=== PATIENT | female | born 1990 | race Caucasian/White ===

== ENCOUNTER 2017-01-17 03:33 | Inpatient (IN) | payer OTHER ==
[2017-01-17] VITALS (11 sets, daily range): BP systolic 100–154; BP diastolic 42–77
[~2017-01-17] VITALS: Ht 167.6 cm; Wt 133.4 kg
--- NOTE | ~2017-01-17 | CON ---
[place], [place] REPORT OF CONSULTATION NAME: LANIE GARNER UNIT #: [id number] ROOM: 518 DOCTOR: VANESSA ANN MD BIRTHDATE: [birth year] DOS: 01/18/2017 HISTORY OF PRESENT ILLNESS: A 26-year-old who has presented with multiple medical issues among which was leukocytosis of 24 and H and H of 8 and 29 with microcytic indices all along with lactic acid of 3.8 and comprehensive metabolic panel of electrolytes balanced. Liver function tests balanced. Urinalysis was 2+ bacteria. KUB of the abdomen, no acute intra-abdominal pathology was found. Lactic acid followed the drop was noticed. CT scan of the abdomen and pelvis was done. Focal inflammatory change identified involving the loops of small bowel in tests and findings favor small internal hernia. PAST MEDICAL HISTORY: Obesity and ovarian cyst. PAST SURGICAL HISTORY: Teeth extraction and cholecystectomy. SOCIAL HISTORY: Nonsmoker, nonalcohol consumer. FAMILY HISTORY: Noncontributory. ALLERGIES: LEVAQUIN. MEDICATION AT HOME: Sprintec 35 mcg daily. REVIEW OF SYSTEMS: HEENT: Denies double vision, blurred vision. RESPIRATORY: Denies shortness of breath. CARDIOVASCULAR: Denies acute chest pain. DIGESTIVE SYSTEM: No hematemesis, no hematochezia. However, abdominal pain, abnormal CT scan of the abdomen. PHYSICAL EXAMINATION: VITAL SIGNS: Obese patient. HEENT: Head is normocephalic, nontraumatic. Mouth and buccal mucosa benign. NECK: Supple, no thyromegaly. CHEST: Symmetric anatomy, equal expansion. No wheeze, no rhonchi. HEART: Normal sinus rhythm, no gallop, no murmur. ABDOMEN: Obese, soft. No hepato-organomegaly. Abdominal pain. Bowel sounds within normal limit. EXTREMITIES: No cyanosis, no pedal edema. NEUROLOGIC: Alert, oriented to time, place, person. IMPRESSION: Anemia, sepsis, antritis, obesity. LABORATORY DATA: Reviewed. Records reviewed. Her hCG is negative. Troponins are negative. Urine culture, no growth. Basic metabolic panel has been stable. CBC differential, H and H dropped to 5 and 21, which was a concern. Transfusion has been undertaken. PLAN AND DISCUSSION: Due to drop in H and H to this extreme degree of hemoglobin of 5 and abdominal pain, we are going to proceed with endoscopic [place], [place] REPORT OF CONSULTATION NAME: LANIE GARNER UNIT #: [id number] ROOM: 518 DOCTOR: SETH REEVES,VANESSA BIRTHDATE: [birth year] assessment to see what the pathology could be. I thank you very much indeed for your kind referral. VANESSA ANN MD CM:CONSTR:REPORT OF CONSULTATION 1056 01/18/17 2223 interface
--- NOTE | ~2017-01-17 | CON ---
[place], [place] REPORT OF CONSULTATION NAME: LANIE GARNER UNIT #: [id number] ROOM: 518 DOCTOR: SETH REEVES,VANESSA BIRTHDATE: [birth year] DOS: 01/18/2017 ADDENDUM: Case was discussed with Dr. Reagan of residency program, and differential has been reviewed with her; enteritis and metromenorrhagia and chronic bleeding issues have been addressed. However, due to the fact that CT scan had shown some antritis, we are going to do a stool for ova and parasite and cultures study and if we have still trouble with H and H, a CT scan of the abdomen with IV contrast is going to be organized in a next day or so. Her H and H is going to be followed up tomorrow after transfusions and workup in progress. VANESSA ANN MD CM:CONSTR:REPORT OF CONSULTATION 1115 01/19/17 1227 interface
--- NOTE | ~2017-01-17 | O ---
[place], [place] OPERATIVE NOTE NAME: [facility]IE [facility]ARNER [facility] [id number] UNIT #: [id number] ROOM: 518 DOCTOR: SETH REEVES,VANESSA BIRTHDATE: [birth year] DOS: GASTROENDOSCOPIC REPORT INDICATIONS: A 26-year-old patient who has presented with chief complaint of abdominal pain, severe drop in H and H to hemoglobin of 5 and to hematocrit of ____ with microcytic indices. The patient with menorrhagia history as well. PROCEDURE: Today's procedure part of investigation is panendoscopy plus biopsy. PREMEDICATION: Versed and Diprivan. SCOPE: Olympus forward-viewing gastroscope Q10 video. REPORT: After putting the patient in the left lateral position and after application of lubricant to the scope, the scope was introduced. Thereafter, under direct visualization, I advanced through the length of the esophagus without difficulty. Gastric pouch was entered. Evidence of gastritis was seen. Small hiatal hernia noticed. Duodenal bulb, second and third part within normal limits. The patient extubated, tolerated procedure well. IMPRESSION: Gastritis, small hiatal hernia. PLAN AND DISCUSSION: The patient is going to get 2 units of packed cells for hemoglobin of 5 and hematocrit of ____. The patient is going to have followup with Dr. Petey Valentine. The patient is going to get regular diet and H and H followup and clinical reassessment. Workup in progress. Thank you very much indeed for your kind referral. Sincerely, VANESSA ANN MD CM:OPRECORD:OPERATIVE NOTE 1059 [id number] VANESSA ANN MD 01/19/17 0338 interface
[~2017-01-17 03:33] MED LIST: IBU-8800 MG PO
[2017-01-17] MEDS ORDERED: SPRINTEC 35 MCG1 TA1 PO (03:41)
[2017-01-17 03:52] LABS: BASO % 0.1 % (0.0-1.0); EOS # 0.1 10*3/uL (0.0-0.4); EOS % 0.5 % (1.0-4.0); HEMATOCRIT 29.3 % (37.0-47.0); HEMOGLOBIN 8.2 g/dl (12.0-16.0); IG # 0.2 10*3/uL (0.0-0.1); LYMPH # 4.3 10*3/uL (1.3-4.4); LYMPH % 17.5 % (27.0-41.0); MEAN CELL VOLUME 65.1 fl (81.0-99.0); MEAN CORPUSCULAR HGB 18.2 pg (27.0-31.0); MEAN PLATELET VOLUME 9.5 fl (9.6-12.3); MONO % 3.9 % (3.0-9.0); NEUT # 18.9 10*3/uL (2.3-7.9); NEUT % 77.1 % (47.0-73.0); NUCLEATED RED BLOOD CELL 0.1 % (0.0-0.0); PLATELET COUNT AUTOMATED 661 10*3/uL (130-400); RED CELL DISTRI WIDTH 17.2 % (0-14.5); WHITE BLOOD COUNT 24.5 10*3/uL (4.8-10.8)
[2017-01-17 04:15] LABS: ALBUMIN 2.9 gm/dl (3.1-4.5); ALKALINE PHOSPHATASE 77 U/L (45-117); BILIRUBIN, TOTAL 0.4 mg/dl (0.2-1.0); BUN 11 mg/dl (7-24); CARBON DIOXIDE 19 mmol/L (21-32); CHLORIDE 106 mmol/L (98-107); EST GLOM FILT AFRICAN AMERICAN > 60 ml/min; GLUCOSE 273 mg/dL (65-99); POTASSIUM 4.5 mmol/L (3.5-5.1); SGOT/AST 20 IU/L (3-35); SGPT/ALT 15 U/L (12-78); SODIUM 140 mmol/L (136-145); TOTAL PROTEIN 7.3 gm/dL (6.4-8.2)
[2017-01-17 04:18] LABS: BILIRUBIN 1+ (NEGATIVE); BLOOD TRACE-LYSED (NEGATIVE); CLARITY CLOUDY (CLEAR); COLOR YELLOW (YELLOW); GLUCOSE NEGATIVE (NEGATIVE); KETONE TRACE (NEGATIVE); LEUKO ESTERASE NEGATIVE (NEGATIVE); NITRITE POSITIVE (NEGATIVE); PROTEIN 2+ (NEGATIVE); SPECIFIC GRAVITY >= 1.030 (1.005-1.030)
[2017-01-17 04:28] LABS: BACTERIA 2+
[2017-01-17 04:29] LABS: URINE REFLEX COMMENT YES (NO)
[2017-01-17 05:50] LABS: LA>2 REFLEX 2 HR DRAW NOW
[2017-01-17 06:05] LABS: LA>2 RFLX FOLLOW UP AT 2 HRS 2.8 mmol/L (0.4-2.0)
[2017-01-17] MEDS ORDERED: Zofran4 MG PO (06:34)
[2017-01-17] MEDS ORDERED: TRAMADOL HCL50 MG PO (06:34)
[2017-01-17 07:59] LABS: LA>2 REFLEX 4 HR DRAW NOW
[2017-01-18] VITALS (15 sets, daily range): BP systolic 103–168; BP diastolic 44–88
[2017-01-18 06:48] LABS: MEAN CELL VOLUME 66.6 fl (81.0-99.0); MEAN PLATELET VOLUME 9.5 fl (9.6-12.3); RED BLOOD COUNT 3.17 10*6/uL (4.10-5.10); RED CELL DISTRI WIDTH 17.1 % (0-14.5); WHITE BLOOD COUNT 9.2 10*3/uL (4.8-10.8)
[2017-01-18 06:54] LABS: HEMATOCRIT 21.1 % (37.0-47.0); PLATELET COUNT AUTOMATED 326 10*3/uL (130-400)
[2017-01-18 07:05] LABS: BUN 6 mg/dl (7-24); CARBON DIOXIDE 23 mmol/L (21-32); CHLORIDE 109 mmol/L (98-107); CHOLESTEROL 94 mg/dL (<200); EST GLOM FILT AFRICAN AMERICAN > 60 ml/min; FREE T4 1.21 ng/dl (0.76-1.46); GLUCOSE 161 mg/dL (65-99); HDL CHOLESTEROL 27 mg/dl (40-60); LDL CHOLESTEROL 24 mg/dL (9-159); POTASSIUM 3.8 mmol/L (3.5-5.1); SODIUM 140 mmol/L (136-145); TRIGLYCERIDES 213 mg/dl (<150); VLDL CHOLESTEROL 43 mg/dL (6-40)
[2017-01-18 07:07] LABS: EOSINOPHIL # 0.3 10*3/uL (0-0.4); EOSINOPHILS 3 % (1-4); LYMPHOCYTE # 1.9 10*3/uL (1.3-4.4); MONOCYTE # 0.3 10*3/uL (0.1-1.0); NEUTROPHIL # 6.7 10*3/uL (2.3-7.9); NEUTROPHILS 73 % (47-73); TOTAL CELLS COUNTED 100 #CELLS
[2017-01-18 07:08] LABS: HYPOCHROMIA MODERATE; MICROCYTOSIS MODERATE; PLATELET SUFFICIENCY NORMAL (NORMAL)
[2017-01-18 07:09] LABS: POLYCHROMASIA SLIGHT
[2017-01-18 07:12] LABS: HEMOGLOBIN 5.7 g/dl (12.0-16.0)
[2017-01-18 07:22] LABS: HEMOGLOBIN A1c 7.7 % (4.8-5.6)
[2017-01-18 17:20] LABS: HEMATOCRIT 26.4 % (37.0-47.0)
[2017-01-18 19:14] LABS: HEMOGLOBIN 7.9 g/dl (12.0-16.0)
[2017-01-19] VITALS: BP 109/58
[2017-01-19 07:04] LABS: BASO % 0.2 % (0.0-1.0); EOS # 0.6 10*3/uL (0.0-0.4); HEMATOCRIT 26.4 % (37.0-47.0); HEMOGLOBIN 7.6 g/dl (12.0-16.0); IG # 0.1 10*3/uL (0.0-0.1); LYMPH # 2.6 10*3/uL (1.3-4.4); LYMPH % 21.5 % (27.0-41.0); MEAN CELL VOLUME 68.8 fl (81.0-99.0); MEAN CORPUSCULAR HGB 19.8 pg (27.0-31.0); MEAN CORPUSCULAR HGB CONC 28.8 g/dl (33.0-37.0); MEAN PLATELET VOLUME 8.9 fl (9.6-12.3); MONO # 0.6 10*3/uL (0.1-1.0); MONO % 5.4 % (3.0-9.0); NEUT % 67.4 % (47.0-73.0); PLATELET COUNT AUTOMATED 321 10*3/uL (130-400); RED BLOOD COUNT 3.84 10*6/uL (4.10-5.10); RED CELL DISTRI WIDTH 18.1 % (0-14.5); WHITE BLOOD COUNT 11.9 10*3/uL (4.8-10.8)
[2017-01-19 08:00] VITALS: BP 141/80
[2017-01-19 12:00] VITALS: BP 155/76
[2017-01-19] MEDS ORDERED: METFORMIN500 MG PO (13:56)
[2017-01-19] MEDS ORDERED: FLAGYL500 MG PO (13:56)
[2017-01-19] MEDS ORDERED: VITAMIN D50000 UNIT PO (13:56)
== END 2017-01-19 16:30 | disposition home or self-care (01) | DRG 872 ==
LOC: ED 03:33 → EDHOLD 08:32 → 5E 08:32
PROVIDERS: Emergency Medicine; Internal Medicine
PROC: 0DB68ZX Excision of Stomach, Via Natural or Artificial Opening Endoscopic, Diagnostic (ICD-10-PCS; principal; 2017-01-18)
PROC: 30233N1 Transfusion of Nonautologous Red Blood Cells into Peripheral Vein, Percutaneous Approach (ICD-10-PCS; 2017-01-18)
DX: A41.9 Sepsis, unspecified organism (principal); E44.0 Moderate protein-calorie malnutrition; Z68.42 Body mass index [BMI] 45.0-49.9, adult; E66.01 Morbid (severe) obesity due to excess calories; D62 Acute posthemorrhagic anemia; N39.0 Urinary tract infection, site not specified; K52.9 Noninfective gastroenteritis and colitis, unspecified; Z90.49 Acquired absence of other specified parts of digestive tract; Z83.3 Family history of diabetes mellitus; Z82.49 Family history of ischemic heart disease and other diseases of the circulatory system; R65.20 Severe sepsis without septic shock; D50.9 Iron deficiency anemia, unspecified; R73.9 Hyperglycemia, unspecified; K29.70 Gastritis, unspecified, without bleeding; K44.9 Diaphragmatic hernia without obstruction or gangrene; N92.1 Excessive and frequent menstruation with irregular cycle

== ENCOUNTER → 2017-02-24 | Outpatient (CLI) | payer OTHER ==
[~2017-02-24] MED LIST changes: +FLAGYL500 MG PO; +METFORMIN500 MG PO; +SPRINTEC 35 MCG1 TA1 PO; +TRAMADOL HCL50 MG PO; +VITAMIN D50000 UNIT PO; +Zofran4 MG PO
[2017-02-24 08:30] LABS: HEMOGLOBIN 10.6 g/dl (12.0-16.0); MEAN CELL VOLUME 74.1 fl (81.0-99.0); MEAN CORPUSCULAR HGB 21.8 pg (27.0-31.0); MEAN CORPUSCULAR HGB CONC 29.4 g/dl (33.0-37.0); MEAN PLATELET VOLUME 9.2 fl (9.6-12.3); RED BLOOD COUNT 4.86 10*6/uL (4.10-5.10); RED CELL DISTRI WIDTH 21.7 % (0-14.5); WHITE BLOOD COUNT 10.5 10*3/uL (4.8-10.8)
[2017-02-24 08:58] LABS: ALBUMIN 2.9 gm/dl (3.1-4.5); ALKALINE PHOSPHATASE 61 U/L (45-117); BILIRUBIN, TOTAL 0.2 mg/dl (0.2-1.0); BUN 9 mg/dl (7-24); CARBON DIOXIDE 26 mmol/L (21-32); CHLORIDE 105 mmol/L (98-107); EST GLOM FILT AFRICAN AMERICAN > 60 ml/min; GLUCOSE 137 mg/dL (65-99); POTASSIUM 4.3 mmol/L (3.5-5.1); SGOT/AST 25 IU/L (3-35); SGPT/ALT 21 U/L (12-78); SODIUM 140 mmol/L (136-145); TOTAL PROTEIN 7.2 gm/dL (6.4-8.2)
[2017-02-24 09:21] LABS: HEMOGLOBIN A1c 5.9 % (4.8-5.6)
== END | disposition home or self-care (01) ==
LOC: LAB 08:05
PROVIDERS: Family Medicine
DX: E11.9 Type 2 diabetes mellitus without complications (principal); E78.00 Pure hypercholesterolemia, unspecified; E66.9 Obesity, unspecified; E55.9 Vitamin D deficiency, unspecified

== ENCOUNTER 2017-08-14 12:18 | Emergency (ER) | payer OTHER ==
[~2017-08-14] VITALS: Ht 167.6 cm; Wt 123.8 kg
[2017-08-14] MEDS ORDERED: KEFLEX500 M1 PO (12:41)
[2017-08-14] MEDS ORDERED: NAPROSYN500 MG PO (12:41)
== END 2017-08-14 13:16 | disposition home or self-care (01) ==
LOC: ED 12:18
DX: S61.012A Laceration without foreign body of left thumb without damage to nail, initial encounter (principal); R03.0 Elevated blood-pressure reading, without diagnosis of hypertension; Z88.1 Allergy status to other antibiotic agents; Z79.899 Other long term (current) drug therapy; Z23 Encounter for immunization; W45.8XXA Other foreign body or object entering through skin, initial encounter; Y93.89 Activity, other specified; Y92.89 Other specified places as the place of occurrence of the external cause; Y99.8 Other external cause status

== ENCOUNTER → 2017-08-22 | Outpatient (CLI) | payer OTHER ==
[~2017-08-22] MED LIST changes: +KEFLEX500 M1 PO; +NAPROSYN500 MG PO
[2017-08-22 09:38] LABS: HEMATOCRIT 37.8 % (37.0-47.0); HEMOGLOBIN 11.8 g/dl (12.0-16.0); MEAN CELL VOLUME 76.5 fl (81.0-99.0); MEAN CORPUSCULAR HGB 23.9 pg (27.0-31.0); MEAN CORPUSCULAR HGB CONC 31.2 g/dl (33.0-37.0); MEAN PLATELET VOLUME 9.3 fl (9.6-12.3); RED BLOOD COUNT 4.94 10*6/uL (4.10-5.10); RED CELL DISTRI WIDTH 17.2 % (0-14.5); WHITE BLOOD COUNT 9.6 10*3/uL (4.8-10.8)
[2017-08-22 10:06] LABS: ALBUMIN 2.8 gm/dl (3.1-4.5); ALKALINE PHOSPHATASE 68 U/L (45-117); BUN 5 mg/dl (7-24); CHLORIDE 107 mmol/L (98-107); CHOLESTEROL 138 mg/dL (<200); HDL CHOLESTEROL 43 mg/dl (40-60); LDL CHOLESTEROL 59 mg/dL (9-159); SGOT/AST 14 IU/L (3-35); SGPT/ALT 19 U/L (12-78); SODIUM 140 mmol/L (136-145); TOTAL PROTEIN 7.1 gm/dL (6.4-8.2); TRIGLYCERIDES 180 mg/dl (<150); VLDL CHOLESTEROL 36 mg/dL (6-40)
== END | disposition home or self-care (01) ==
LOC: LAB 09:04
PROVIDERS: Family Medicine
DX: E11.9 Type 2 diabetes mellitus without complications (principal); D64.9 Anemia, unspecified; J32.9 Chronic sinusitis, unspecified; R53.83 Other fatigue; E55.9 Vitamin D deficiency, unspecified

== ENCOUNTER 2017-08-26 06:47 | Emergency (ER) | payer OTHER ==
[~2017-08-26] VITALS: Ht 167.6 cm; Wt 122.5 kg
[2017-08-26] MEDS ORDERED: IROSPAN 24/6 T1 EACH PO (07:01)
[2017-08-26] MEDS ORDERED: B12100 MC1 PO (07:02)
[2017-08-26] MEDS ORDERED: OMEPRAZOLE10 MG PO (07:03)
[2017-08-26 07:45] LABS: BASO % 0.3 % (0.0-1.0); EOS # 0.3 10*3/uL (0.0-0.4); EOS % 2.1 % (1.0-4.0); HEMATOCRIT 43.6 % (37.0-47.0); HEMOGLOBIN 13.6 g/dl (12.0-16.0); LYMPH # 2.3 10*3/uL (1.3-4.4); LYMPH % 15.9 % (27.0-41.0); MEAN CELL VOLUME 75.3 fl (81.0-99.0); MEAN CORPUSCULAR HGB 23.5 pg (27.0-31.0); MEAN CORPUSCULAR HGB CONC 31.2 g/dl (33.0-37.0); MEAN PLATELET VOLUME 9.2 fl (9.6-12.3); MONO # 0.6 10*3/uL (0.1-1.0); MONO % 4.3 % (3.0-9.0); NEUT # 11.3 10*3/uL (2.3-7.9); NEUT % 77.1 % (47.0-73.0); PLATELET COUNT AUTOMATED 446 10*3/uL (130-400); RED BLOOD COUNT 5.79 10*6/uL (4.10-5.10); WHITE BLOOD COUNT 14.7 10*3/uL (4.8-10.8)
[2017-08-26 08:02] LABS: ALBUMIN 3.2 gm/dl (3.1-4.5); ALKALINE PHOSPHATASE 68 U/L (45-117); BUN 9 mg/dl (7-24); CHLORIDE 105 mmol/L (98-107); CREATININE 0.79 mg/dL (0.55-1.02); LIPASE 153 U/L (73-393); POTASSIUM 3.7 mmol/L (3.5-5.1); SGOT/AST 13 IU/L (3-35); SGPT/ALT 18 U/L (12-78); SODIUM 138 mmol/L (136-145); TOTAL PROTEIN 8.2 gm/dL (6.4-8.2)
[2017-08-26 08:08] LABS: BETA-HCG, QUANT < 1.0 mIU/mL (1-3)
[2017-08-26 09:26] LABS: BILIRUBIN NEGATIVE (NEGATIVE); BLOOD 3+ (NEGATIVE); CLARITY CLOUDY (CLEAR); COLOR YELLOW (YELLOW); GLUCOSE NEGATIVE (NEGATIVE); KETONE TRACE (NEGATIVE); LEUKO ESTERASE 1+ (NEGATIVE); NITRITE NEGATIVE (NEGATIVE); SPECIFIC GRAVITY 1.025 (1.005-1.030); UROBILINOGEN 0.2 E.U./dl (0.2-1.0)
[2017-08-26 09:36] LABS: BACTERIA 3+; EPITHELIAL CELLS 25-30; RBC 51-100 rbc/hpf (0-2); WBC 31-40 wbc/hpf (0-5)
[2017-08-26] MEDS ORDERED: ZOFRAN ODT4 MG SL (10:06)
[2017-08-26] MEDS ORDERED: SEPTDS PO (10:06)
== END 2017-08-26 10:37 | disposition home or self-care (01) ==
LOC: ED 06:47
PROVIDERS: Emergency Medicine
DX: N39.0 Urinary tract infection, site not specified (principal); R19.7 Diarrhea, unspecified; Z88.1 Allergy status to other antibiotic agents; Z88.6 Allergy status to analgesic agent; Z79.899 Other long term (current) drug therapy

== ENCOUNTER → 2017-10-20 | Outpatient (CLI) | payer OTHER ==
[~2017-10-20] MED LIST changes: +B12100 MC1 PO; +IROSPAN 24/6 T1 EACH PO; +OMEPRAZOLE10 MG PO; +SEPTDS PO; +ZOFRAN ODT4 MG SL
== END | disposition home or self-care (01) ==
LOC: US 11:39
DX: R60.0 Localized edema (principal)

== ENCOUNTER 2023-01-03 23:10 | Emergency (ER) | payer SELFPAY ==
[~2023-01-03] VITALS: Ht 167.6 cm; Wt 117.9 kg
[2023-01-03 23:59] LABS: HEMATOCRIT 43.6 % (37.0-47.0); MEAN CELL VOLUME 77.6 fl (81.0-99.0); MEAN CORPUSCULAR HGB 23.8 pg (27.0-31.0); MEAN CORPUSCULAR HGB CONC 30.7 g/dl (33.0-37.0); MEAN PLATELET VOLUME 9.1 fl (9.6-12.3); PLATELET COUNT AUTOMATED 432 10*3/uL (130-400); RED BLOOD COUNT 5.62 10*6/uL (4.10-5.10); RED CELL DISTRI WIDTH 15.3 % (0-14.5); WHITE BLOOD COUNT 17.8 10*3/uL (4.8-10.8)
[2023-01-04 00:02] LABS: MANUAL DIFF REFLEX YES
[2023-01-04 00:21] LABS: PLATELET SUFFICIENCY HIGH (NORMAL); TOTAL CELLS COUNTED 100 #CELLS; TOXIC GRANULATION SLIGHT
[2023-01-04 00:22] LABS: BURR CELLS FEW
[2023-01-04 00:23] LABS: ALKALINE PHOSPHATASE 72 U/L (46-116); BUN 13 mg/dl (9-23); CHLORIDE 102 mmol/L (98-107); OVALOCYTES FEW; SGPT/ALT 17 U/L (10-49); TOTAL PROTEIN 7.6 gm/dL (6.0-8.0)
[2023-01-04 00:56] LABS: BILIRUBIN Negative (Negative); BLOOD Negative (Negative); CLARITY Clear (Clear); COLOR Yellow (Yellow); GLUCOSE Negative (Negative); KETONE Negative (Negative); LEUKO ESTERASE Negative (Negative); NITRITE Negative (Negative); SPECIFIC GRAVITY >= 1.030 (1.001-1.030); UROBILINOGEN 0.2 E.U./dl (0.0-1.0)
[2023-01-04 01:05] LABS: BACTERIA 1+; FINE GRANULAR CAST 0-2; MUCOUS 1+; RBC 0-2 rbc/hpf (0-2)
[2023-01-04] MEDS ORDERED: PHENERGAN25 M3 PO (01:41)
== END 2023-01-04 01:55 | disposition home or self-care (01) ==
LOC: ED 23:10
PROVIDERS: Internal Medicine
DX: K52.9 Noninfective gastroenteritis and colitis, unspecified (principal); D72.829 Elevated white blood cell count, unspecified; R71.8 Other abnormality of red blood cells; Z88.1 Allergy status to other antibiotic agents; Z88.8 Allergy status to other drugs, medicaments and biological substances; Z79.899 Other long term (current) drug therapy; Z90.49 Acquired absence of other specified parts of digestive tract; Z98.890 Other specified postprocedural states

== ENCOUNTER 2023-03-07 21:20 | Emergency (ER) | payer SELFPAY ==
[~2023-03-07 21:20] MED LIST changes: +PHENERGAN25 M3 PO
[2023-03-07] MEDS ORDERED: HYDROCODONE-AC1 EAC1 PO (22:53)
== END 2023-03-07 22:58 | disposition home or self-care (01) ==
LOC: ED 21:20
DX: S82.61XA Displaced fracture of lateral malleolus of right fibula, initial encounter for closed fracture (principal); S80.01XA Contusion of right knee, initial encounter; Z88.5 Allergy status to narcotic agent; Z88.6 Allergy status to analgesic agent; Z88.8 Allergy status to other drugs, medicaments and biological substances; Z90.49 Acquired absence of other specified parts of digestive tract; Z98.890 Other specified postprocedural states; W17.2XXA Fall into hole, initial encounter; Y93.89 Activity, other specified; Y92.009 Unspecified place in unspecified non-institutional (private) residence as the place of occurrence of the external cause; Y99.8 Other external cause status

== ENCOUNTER → 2023-03-13 | Outpatient (CLI) | payer SELFPAY ==
[~2023-03-13] MED LIST changes: +HYDROCODONE-AC1 EAC1 PO
== END | disposition home or self-care (01) ==
LOC: ORTHO 11:26 → RAD 11:26
PROVIDERS: ATTEND Orthopaedic Surgery
DX: M77.31 Calcaneal spur, right foot (principal); M79.89 Other specified soft tissue disorders; M25.571 Pain in right ankle and joints of right foot

== ENCOUNTER → 2023-06-10 | Outpatient (CLI) | payer OTHER ==
[2023-06-10 11:40] LABS: MEAN CELL VOLUME 78.5 fl (81.0-99.0); MEAN CORPUSCULAR HGB 24.2 pg (27.0-31.0); MEAN CORPUSCULAR HGB CONC 30.8 g/dl (33.0-37.0); MEAN PLATELET VOLUME 9.6 fl (9.6-12.3); RED BLOOD COUNT 4.84 10*6/uL (4.10-5.10); RED CELL DISTRI WIDTH 16.7 % (0-14.5); WHITE BLOOD COUNT 9.6 10*3/uL (4.8-10.8)
[2023-06-10 12:39] LABS: ALKALINE PHOSPHATASE 55 U/L (46-116); BUN 6 mg/dl (9-23); CHLORIDE 107 mmol/L (98-107); CHOLESTEROL 122 mg/dL (<200); FREE T4 1.01 ng/dl (0.89-1.76); LDL CHOLESTEROL 55 mg/dL (9-159); POTASSIUM 4.3 mmol/L (3.4-5.1); SGPT/ALT 12 U/L (10-49); TOTAL PROTEIN 6.9 gm/dL (6.0-8.0); TRIGLYCERIDES 151 mg/dl (<150)
[2023-06-10 13:23] LABS: VITAMIN D, 25-HYDROXY 21.7 ng/mL (30-100)
== END | disposition home or self-care (01) ==
LOC: LAB 11:19
PROVIDERS: ATTEND Family Medicine
DX: Z00.00 Encounter for general adult medical examination without abnormal findings (principal); F41.1 Generalized anxiety disorder; E11.9 Type 2 diabetes mellitus without complications; E55.9 Vitamin D deficiency, unspecified; R53.83 Other fatigue; E78.00 Pure hypercholesterolemia, unspecified; F43.10 Post-traumatic stress disorder, unspecified

== ENCOUNTER 2023-07-30 23:04 | Emergency (ER) | payer OTHER ==
[~2023-07-30] VITALS: Ht 170.1 cm; Wt 124.7 kg
[2023-07-30] MEDS ORDERED: LAMICTAL100 MG PO (23:24)
[2023-07-30] MEDS ORDERED: GLUMETZA500 MG PO (23:25)
[2023-07-30] MEDS ORDERED: ABILIFY2 MG PO (23:25)
[2023-07-31 01:13] LABS: BASO # 0.1 10*3/uL (0.0-0.1); BASO % 0.6 % (0.0-1.0); EOS # 0.8 10*3/uL (0.0-0.4); EOS % 4.9 % (1.0-4.0); HEMATOCRIT 36.3 % (37.0-47.0); LYMPH # 2.8 10*3/uL (1.3-4.4); LYMPH % 16.9 % (27.0-41.0); MEAN CELL VOLUME 77.1 fl (81.0-99.0); MEAN CORPUSCULAR HGB 23.1 pg (27.0-31.0); MEAN PLATELET VOLUME 9.2 fl (9.6-12.3); NEUT # 11.8 10*3/uL (2.3-7.9); NEUT % 71.1 % (47.0-73.0); PLATELET COUNT AUTOMATED 504 10*3/uL (130-400); RED BLOOD COUNT 4.71 10*6/uL (4.10-5.10); RED CELL DISTRI WIDTH 16.3 % (0-14.5); WHITE BLOOD COUNT 16.6 10*3/uL (4.8-10.8)
[2023-07-31 01:35] LABS: ALKALINE PHOSPHATASE 69 U/L (46-116); BUN 10 mg/dl (9-23); CHLORIDE 103 mmol/L (98-107); LIPASE 32 U/L (12-53); SGPT/ALT 12 U/L (5-49); TOTAL PROTEIN 7.1 gm/dL (6.0-8.0)
[2023-07-31 01:41] LABS: B-hCG (QUALITATIVE) NEGATIVE (NEGATIVE); ETHYL ALCOHOL < 3.0 mg/dl (<3)
[2023-07-31] MEDS ORDERED: AMOX-CLAV 875-1 EACH PO (04:04)
[2023-07-31] MEDS ORDERED: FLUCONAZOLE200 MG PO (04:04)
[2023-07-31] MEDS ORDERED: PHENERGAN25 M3 PO (04:04)
[2023-07-31] MEDS ORDERED: ZITHROMAX250 MG PO (04:04)
[2023-07-31] MEDS ORDERED: TOBRADEX ST EYE5 ML OP (04:27)
== END 2023-07-31 04:25 | disposition home or self-care (01) ==
LOC: ED 23:04
PROVIDERS: Family Medicine
DX: U07.1 COVID-19 (principal); J12.82 Pneumonia due to coronavirus disease 2019; H10.9 Unspecified conjunctivitis; Z88.8 Allergy status to other drugs, medicaments and biological substances; Z88.6 Allergy status to analgesic agent; Z90.49 Acquired absence of other specified parts of digestive tract; Z98.890 Other specified postprocedural states; F17.290 Nicotine dependence, other tobacco product, uncomplicated; Z79.899 Other long term (current) drug therapy

== ENCOUNTER 2023-11-11 02:50 | Emergency (ER) | payer SELFPAY ==
[~2023-11-11] VITALS: Ht 170.1 cm; Wt 128.4 kg
[~2023-11-11 02:50] MED LIST changes: +ABILIFY2 MG PO; +AMOX-CLAV 875-1 EACH PO; +FLUCONAZOLE200 MG PO; +GLUMETZA500 MG PO; +LAMICTAL100 MG PO; +TOBRADEX ST EYE5 ML OP; +ZITHROMAX250 MG PO
[2023-11-11] MEDS ORDERED: Promethazine Hydrochloride 25 MG/ML VIAL IV ONE (04:20)
[2023-11-11] MEDS ORDERED: SODIUM CHLORIDE 0.9% 1,000 ML IV ONE (04:20)
[2023-11-11] MEDS ORDERED: methylPREDNISolone sod succ 125 MG VIAL IV ONE (04:25)
[2023-11-11 04:53] LABS: BASO # 0.1 10*3/uL (0.0-0.1); BASO % 0.7 % (0.0-1.0); EOS # 0.3 10*3/uL (0.0-0.4); EOS % 2.5 % (1.0-4.0); HEMATOCRIT 38.6 % (37.0-47.0); LYMPH # 2.1 10*3/uL (1.3-4.4); LYMPH % 17.9 % (27.0-41.0); MEAN CELL VOLUME 75.1 fl (81.0-99.0); MEAN CORPUSCULAR HGB 22.6 pg (27.0-31.0); MEAN CORPUSCULAR HGB CONC 30.1 g/dl (33.0-37.0); MEAN PLATELET VOLUME 9.8 fl (9.6-12.3); MONO # 0.6 10*3/uL (0.1-1.0); MONO % 5.2 % (3.0-9.0); NEUT # 8.6 10*3/uL (2.3-7.9); NEUT % 73.4 % (47.0-73.0); PLATELET COUNT AUTOMATED 377 10*3/uL (130-400); RED BLOOD COUNT 5.14 10*6/uL (4.10-5.10); RED CELL DISTRI WIDTH 17.2 % (0-14.5); WHITE BLOOD COUNT 11.7 10*3/uL (4.8-10.8)
[2023-11-11 05:17] LABS: ALKALINE PHOSPHATASE 63 U/L (46-116); BUN 10 mg/dl (9-23); CHLORIDE 100 mmol/L (98-107); SGPT/ALT 15 U/L (5-49); TOTAL PROTEIN 7.5 gm/dL (6.0-8.0)
[2023-11-11] MEDS ORDERED: HYDROmorphONE Hydrochloride 0.5 MG/0.5 ML SYRINGE IV ONE (06:00)
== END 2023-11-11 06:50 | disposition home or self-care (01) ==
LOC: ED 02:50
PROVIDERS: Emergency Medicine
DX: R51.9 Headache, unspecified (principal); R73.9 Hyperglycemia, unspecified; Z88.8 Allergy status to other drugs, medicaments and biological substances; Z88.6 Allergy status to analgesic agent; Z88.1 Allergy status to other antibiotic agents; Z90.49 Acquired absence of other specified parts of digestive tract; Z98.890 Other specified postprocedural states; Z79.899 Other long term (current) drug therapy

== ENCOUNTER 2024-01-05 08:14 | Emergency (ER) | payer SELFPAY ==
[~2024-01-05] VITALS: Ht 170.1 cm; Wt 127.0 kg
[2024-01-05 08:52] LABS: BASO # 0.1 10*3/uL (0.0-0.1); BASO % 0.5 % (0.0-1.0); EOS # 0.3 10*3/uL (0.0-0.4); EOS % 2.8 % (1.0-4.0); HEMATOCRIT 37.6 % (37.0-47.0); LYMPH # 2.2 10*3/uL (1.3-4.4); LYMPH % 18.1 % (27.0-41.0); MEAN CELL VOLUME 74.8 fl (81.0-99.0); MEAN CORPUSCULAR HGB 23.3 pg (27.0-31.0); MEAN CORPUSCULAR HGB CONC 31.1 g/dl (33.0-37.0); MEAN PLATELET VOLUME 9.6 fl (9.6-12.3); MONO # 0.9 10*3/uL (0.1-1.0); MONO % 7.4 % (3.0-9.0); NEUT # 8.7 10*3/uL (2.3-7.9); PLATELET COUNT AUTOMATED 353 10*3/uL (130-400); RED BLOOD COUNT 5.03 10*6/uL (4.10-5.10); RED CELL DISTRI WIDTH 16.9 % (0-14.5); WHITE BLOOD COUNT 12.3 10*3/uL (4.8-10.8)
[2024-01-05 09:02] LABS: ACT PARTIAL THROMBO TIME 27.9 SECONDS (20.0-32.1)
[2024-01-05 09:08] LABS: ALKALINE PHOSPHATASE 75 U/L (46-116); BUN 7 mg/dl (9-23); CHLORIDE 102 mmol/L (98-107); POTASSIUM 3.8 mmol/L (3.4-5.1); SGPT/ALT 16 U/L (5-49); TOTAL PROTEIN 7.1 gm/dL (6.0-8.0)
[2024-01-05] MEDS ORDERED: ORTHO-NOVUM 7-1 EACH PO (09:30)
[2024-01-05] MEDS ORDERED: MAGNESIUM OXIDE 400 MG TAB PO ONE (09:40)
== END 2024-01-05 09:40 | disposition home or self-care (01) ==
LOC: ED 08:14
PROVIDERS: Internal Medicine
DX: E83.42 Hypomagnesemia (principal); Z88.8 Allergy status to other drugs, medicaments and biological substances; Z88.2 Allergy status to sulfonamides; Z88.1 Allergy status to other antibiotic agents; Z79.899 Other long term (current) drug therapy; Z79.2 Long term (current) use of antibiotics; Z90.49 Acquired absence of other specified parts of digestive tract; N92.1 Excessive and frequent menstruation with irregular cycle

== ENCOUNTER 2024-01-12 23:12 | Emergency (ER) | payer SELFPAY ==
[~2024-01-12] VITALS: Ht 170.1 cm; Wt 129.3 kg
[~2024-01-12 23:12] MED LIST changes: +ORTHO-NOVUM 7-1 EACH PO
[2024-01-12] MEDS ORDERED: Promethazine Hydrochloride 25 MG TAB PO ONE (23:50)
[2024-01-13 00:31] LABS: BILIRUBIN Negative (Negative); BLOOD 3+ (Negative); CLARITY Cloudy (Clear); COLOR Yellow (Yellow); GLUCOSE Negative (Negative); KETONE Trace (Negative); LEUKO ESTERASE 2+ (Negative); NITRITE Negative (Negative); PH 5.5 (4.5-8.0); SPECIFIC GRAVITY 1.025 (1.001-1.030); UROBILINOGEN 0.2 E.U./dl (0.0-1.0)
[2024-01-13 00:59] LABS: BACTERIA 3+; EPITHELIAL CELLS 41-50; WBC 21-30 wbc/hpf (0-5)
[2024-01-13 01:00] LABS: RBC 21-30 rbc/hpf (0-2)
[2024-01-13] MEDS ORDERED: NITROFURANTOIN MACROCRYSTAL 100 MG PO ONE (01:05)
[2024-01-13] MEDS ORDERED: MEPERIDINE HYDROCHLORIDE 25 MG/1 ML VIAL IM ONE (01:10)
[2024-01-13] MEDS ORDERED: NITROFURANTOIN100 M3 PO (01:13)
[2024-01-13] MEDS ORDERED: Nitrofurantoin Monohydrate/N 100 MG CAP PO ONE (01:35)
== END 2024-01-13 01:40 | disposition home or self-care (01) ==
LOC: ED 23:12
PROVIDERS: Internal Medicine
DX: N39.0 Urinary tract infection, site not specified (principal); R11.2 Nausea with vomiting, unspecified; R00.0 Tachycardia, unspecified; R42 Dizziness and giddiness; Z88.8 Allergy status to other drugs, medicaments and biological substances; Z88.1 Allergy status to other antibiotic agents; Z88.2 Allergy status to sulfonamides; Z79.899 Other long term (current) drug therapy; Z79.2 Long term (current) use of antibiotics; Z90.49 Acquired absence of other specified parts of digestive tract

== ENCOUNTER 2024-01-18 23:01 | Emergency (ER) | payer SELFPAY ==
[~2024-01-18] VITALS: Ht 177.8 cm; Wt 124.7 kg
[~2024-01-18 23:01] MED LIST changes: +NITROFURANTOIN100 M3 PO
[2024-01-18 23:47] LABS: BASO # 0.1 10*3/uL (0.0-0.1); BASO % 0.7 % (0.0-1.0); EOS # 0.4 10*3/uL (0.0-0.4); EOS % 3.8 % (1.0-4.0); HEMATOCRIT 39.1 % (37.0-47.0); LYMPH # 3.1 10*3/uL (1.3-4.4); MEAN CELL VOLUME 76.2 fl (81.0-99.0); MEAN CORPUSCULAR HGB CONC 30.2 g/dl (33.0-37.0); MEAN PLATELET VOLUME 9.4 fl (9.6-12.3); MONO # 0.7 10*3/uL (0.1-1.0); MONO % 6.2 % (3.0-9.0); NEUT # 7.1 10*3/uL (2.3-7.9); NEUT % 61.9 % (47.0-73.0); PLATELET COUNT AUTOMATED 441 10*3/uL (130-400); RED BLOOD COUNT 5.13 10*6/uL (4.10-5.10); WHITE BLOOD COUNT 11.4 10*3/uL (4.8-10.8)
[2024-01-18 23:50] LABS: BILIRUBIN Negative (Negative); BLOOD 3+ (Negative); CLARITY Cloudy (Clear); COLOR Yellow (Yellow); GLUCOSE 1+ (Negative); KETONE Trace (Negative); LEUKO ESTERASE 2+ (Negative); NITRITE Negative (Negative); PH 5.5 (4.5-8.0); SPECIFIC GRAVITY >= 1.030 (1.001-1.030)
[2024-01-19 00:09] LABS: BACTERIA 1+; MUCOUS 1+; RBC 21-30 rbc/hpf (0-2); WBC 31-40 wbc/hpf (0-5)
[2024-01-19 00:13] LABS: ALKALINE PHOSPHATASE 83 U/L (46-116); BUN 12 mg/dl (9-23); CHLORIDE 104 mmol/L (98-107); LIPASE 32 U/L (12-53); POTASSIUM 3.8 mmol/L (3.4-5.1); SGPT/ALT 22 U/L (5-49); TOTAL PROTEIN 7.4 gm/dL (6.0-8.0)
[2024-01-19] MEDS ORDERED: SODIUM CHLORIDE 0.9% 1,000 ML IV SCH (00:30)
[2024-01-19] MEDS ORDERED: Ondansetron Hydrochloride 4 MG/2 ML VIAL IV ONE (00:30)
[2024-01-19] MEDS ORDERED: Promethazine Hydrochloride 25 MG/ML VIAL IM ONE (03:20)
[2024-01-19] MEDS ORDERED: MEPERIDINE HYDROCHLORIDE 25 MG/1 ML VIAL IM ONE (03:20)
[2024-01-19] MEDS ORDERED: Water, Sterile 10 ML VIAL ONE (04:31)
== END 2024-01-19 05:23 | disposition home or self-care (01) ==
LOC: ED 23:01
PROVIDERS: Internal Medicine
DX: N83.8 Other noninflammatory disorders of ovary, fallopian tube and broad ligament (principal); R79.82 Elevated C-reactive protein (CRP); E11.65 Type 2 diabetes mellitus with hyperglycemia; E87.20 Acidosis, unspecified; Z88.8 Allergy status to other drugs, medicaments and biological substances; Z88.6 Allergy status to analgesic agent; Z88.2 Allergy status to sulfonamides; Z90.49 Acquired absence of other specified parts of digestive tract; Z98.890 Other specified postprocedural states

== ENCOUNTER → 2024-01-19 | Outpatient (CLI) | payer SELFPAY | END | disposition home or self-care (01) | LOC: US 07:37 | PROVIDERS: ATTEND Internal Medicine | DX: N83.202 Unspecified ovarian cyst, left side (principal); N83.8 Other noninflammatory disorders of ovary, fallopian tube and broad ligament; N85.8 Other specified noninflammatory disorders of uterus ==

== ENCOUNTER 2024-02-06 16:16 | Emergency (ER) | payer SELFPAY ==
[~2024-02-06] VITALS: Ht 170.1 cm; Wt 127.0 kg
[~2024-02-06 16:16] MED LIST changes: +MACROBID100 M1 PO
[2024-02-06 17:48] LABS: BILIRUBIN Negative (Negative); BLOOD 2+ (Negative); CLARITY Clear (Clear); COLOR Yellow (Yellow); GLUCOSE Negative (Negative); KETONE Trace (Negative); LEUKO ESTERASE Negative (Negative); NITRITE Negative (Negative); PH 5.5 (4.5-8.0); SPECIFIC GRAVITY 1.025 (1.001-1.030); UROBILINOGEN 0.2 E.U./dl (0.0-1.0)
[2024-02-06 17:58] LABS: BACTERIA TRACE; CALCIUM OXALATE CRYSTALS 2+; MUCOUS 3+
[2024-02-06] MEDS ORDERED: Ondansetron Hydrochloride 4 MG/2 ML VIAL IV ONE (18:00)
[2024-02-06] MEDS ORDERED: ACETAMINOPHEN 325 MG TAB PO ONE (18:00)
[2024-02-06] MEDS ORDERED: SODIUM CHLORIDE 0.9% 1,000 ML IV ONE (18:00)
[2024-02-06 18:22] LABS: BASO # 0.1 10*3/uL (0.0-0.1); BASO % 0.5 % (0.0-1.0); EOS # 0.5 10*3/uL (0.0-0.4); EOS % 5.1 % (1.0-4.0); HEMATOCRIT 36.9 % (37.0-47.0); LYMPH # 2.2 10*3/uL (1.3-4.4); LYMPH % 23.5 % (27.0-41.0); MEAN CELL VOLUME 74.4 fl (81.0-99.0); MEAN CORPUSCULAR HGB 23.4 pg (27.0-31.0); MEAN CORPUSCULAR HGB CONC 31.4 g/dl (33.0-37.0); MEAN PLATELET VOLUME 9.5 fl (9.6-12.3); MONO # 0.5 10*3/uL (0.1-1.0); MONO % 5.4 % (3.0-9.0); NEUT % 65.1 % (47.0-73.0); PLATELET COUNT AUTOMATED 370 10*3/uL (130-400); RED BLOOD COUNT 4.96 10*6/uL (4.10-5.10); RED CELL DISTRI WIDTH 15.8 % (0-14.5); WHITE BLOOD COUNT 9.2 10*3/uL (4.8-10.8)
[2024-02-06 18:43] LABS: ALKALINE PHOSPHATASE 74 U/L (46-116); BUN 10 mg/dl (9-23); CHLORIDE 107 mmol/L (98-107); LIPASE 34 U/L (12-53); POTASSIUM 4.2 mmol/L (3.4-5.1); SGPT/ALT 22 U/L (5-49); TOTAL PROTEIN 6.8 gm/dL (6.0-8.0)
[2024-02-06] MEDS ORDERED: SODIUM CHLORIDE 0.9% 100 ML BAG IV ONE (20:05)
[2024-02-06] MEDS ORDERED: IOHEXOL 350 MG/ML 100 ML VIAL IV ONE (20:05)
[2024-02-06] MEDS ORDERED: Ketorolac Tromethamine 30 MG/ML VIAL IV ONE (22:40)
== END 2024-02-06 23:26 | disposition home or self-care (01) ==
LOC: ED 16:16
PROVIDERS: Emergency Medicine; Physician Assistant Medical
DX: N83.202 Unspecified ovarian cyst, left side (principal); E11.9 Type 2 diabetes mellitus without complications; Z88.8 Allergy status to other drugs, medicaments and biological substances; Z88.6 Allergy status to analgesic agent; Z88.2 Allergy status to sulfonamides; Z90.49 Acquired absence of other specified parts of digestive tract; Z98.890 Other specified postprocedural states

== ENCOUNTER 2024-02-25 03:01 | Emergency (ER) | payer SELFPAY ==
[~2024-02-25] VITALS: Ht 170.1 cm; Wt 125.2 kg
[2024-02-25] MEDS ORDERED: IBU800 M1 PO (03:15)
[2024-02-25] MEDS ORDERED: OXYCODONE-ACET1 EAC3 PO (03:15)
== END 2024-02-25 03:41 | disposition home or self-care (01) ==
LOC: ED 03:01
DX: Z48.89 Encounter for other specified surgical aftercare (principal); E11.9 Type 2 diabetes mellitus without complications; Z88.8 Allergy status to other drugs, medicaments and biological substances; Z88.6 Allergy status to analgesic agent; Z88.2 Allergy status to sulfonamides; Z90.49 Acquired absence of other specified parts of digestive tract; Z98.890 Other specified postprocedural states

== ENCOUNTER 2024-03-11 00:05 | Emergency (ER) | payer SELFPAY ==
[~2024-03-11] VITALS: Ht 170.1 cm; Wt 122.5 kg
[~2024-03-11 00:05] MED LIST changes: +IBU800 M1 PO; +OXYCODONE-ACET1 EAC3 PO
[2024-03-11] MEDS ORDERED: Piperacillin Sodium/Tazobact 100 ML IV ONE (00:35)
[2024-03-11] MEDS ORDERED: Vancomycin Hydrochloride 1,000 MG in SODIUM CHLORIDE 0.9% 250 ML IV ONE (00:35)
[2024-03-11] MEDS ORDERED: SODIUM CHLORIDE 0.9% 1,000 ML IV ONE (00:35)
[2024-03-11 00:53] LABS: BASO # 0.1 10*3/uL (0.0-0.1); BASO % 0.7 % (0.0-1.0); EOS # 0.4 10*3/uL (0.0-0.4); HEMATOCRIT 34.7 % (37.0-47.0); LYMPH # 2.9 10*3/uL (1.3-4.4); LYMPH % 28.4 % (27.0-41.0); MEAN CELL VOLUME 72.6 fl (81.0-99.0); MEAN CORPUSCULAR HGB 21.5 pg (27.0-31.0); MEAN CORPUSCULAR HGB CONC 29.7 g/dl (33.0-37.0); MEAN PLATELET VOLUME 9.4 fl (9.6-12.3); MONO # 0.8 10*3/uL (0.1-1.0); MONO % 7.4 % (3.0-9.0); NEUT % 59.1 % (47.0-73.0); PLATELET COUNT AUTOMATED 439 10*3/uL (130-400); RED BLOOD COUNT 4.78 10*6/uL (4.10-5.10); WHITE BLOOD COUNT 10.1 10*3/uL (4.8-10.8)
[2024-03-11] MEDS ORDERED: Vancomycin Hydrochloride 250 ML IV ONE (01:05)
[2024-03-11 01:17] LABS: ALKALINE PHOSPHATASE 72 U/L (46-116); BUN 9 mg/dl (9-23); CHLORIDE 107 mmol/L (98-107); POTASSIUM 3.4 mmol/L (3.4-5.1); SGPT/ALT 16 U/L (5-49); TOTAL PROTEIN 6.9 gm/dL (6.0-8.0)
[2024-03-11 01:20] LABS: BETA-HCG, QUANT < 3.0 mIU/mL (3-10)
[2024-03-11] MEDS ORDERED: MAGNESIUM OXIDE 400 MG TAB PO ONE (01:40)
[2024-03-11] MEDS ORDERED: MORPHINE Sulfate 2 MG/ML SYR IV ONE (03:00)
[2024-03-11] MEDS ORDERED: Metoclopramide Hydrochloride 10 MG/2 ML AMP IV ONE (03:00)
== END 2024-03-11 04:20 | disposition short-term general hospital (02) ==
LOC: ED 00:05
PROVIDERS: Internal Medicine
DX: N70.92 Oophoritis, unspecified (principal); K63.2 Fistula of intestine; E11.9 Type 2 diabetes mellitus without complications; Z88.8 Allergy status to other drugs, medicaments and biological substances; Z88.2 Allergy status to sulfonamides; Z88.6 Allergy status to analgesic agent; Z90.49 Acquired absence of other specified parts of digestive tract; Z98.890 Other specified postprocedural states

== ENCOUNTER 2024-03-31 15:10 | Emergency (ER) | payer SELFPAY ==
[~2024-03-31] VITALS: Ht 170.1 cm; Wt 123.8 kg
[2024-03-31] MEDS ORDERED: SODIUM CHLORIDE 0.9% 1,000 ML IV ONE (16:15)
[2024-03-31] MEDS ORDERED: Metoclopramide Hydrochloride 10 MG/2 ML AMP IV ONE (16:15)
[2024-03-31] MEDS ORDERED: MORPHINE Sulfate 2 MG/ML SYR IV ONE (16:15)
[2024-03-31 16:42] LABS: BASO # 0.1 10*3/uL (0.0-0.1); BASO % 1.1 % (0.0-1.0); EOS # 0.3 10*3/uL (0.0-0.4); EOS % 3.4 % (1.0-4.0); HEMATOCRIT 35.3 % (37.0-47.0); LYMPH % 26.6 % (27.0-41.0); MEAN CELL VOLUME 71.7 fl (81.0-99.0); MEAN CORPUSCULAR HGB 21.5 pg (27.0-31.0); MEAN PLATELET VOLUME 9.6 fl (9.6-12.3); MONO # 0.5 10*3/uL (0.1-1.0); MONO % 7.1 % (3.0-9.0); NEUT # 4.5 10*3/uL (2.3-7.9); NEUT % 61.4 % (47.0-73.0); PLATELET COUNT AUTOMATED 431 10*3/uL (130-400); RED BLOOD COUNT 4.92 10*6/uL (4.10-5.10); RED CELL DISTRI WIDTH 16.5 % (0-14.5); WHITE BLOOD COUNT 7.3 10*3/uL (4.8-10.8)
[2024-03-31] MEDS ORDERED: Ketorolac Tromethamine 30 MG/ML VIAL IV ONE (16:50)
[2024-03-31] MEDS ORDERED: IOHEXOL 300 MG/ML 100 ML VIAL IV ONE (16:55)
[2024-03-31 17:07] LABS: ALKALINE PHOSPHATASE 75 U/L (46-116); BUN 9 mg/dl (9-23); CHLORIDE 106 mmol/L (98-107); LIPASE 31 U/L (12-53); POTASSIUM 4.1 mmol/L (3.4-5.1); SGPT/ALT 19 U/L (5-49); TOTAL PROTEIN 7.6 gm/dL (6.0-8.0)
[2024-03-31 17:08] LABS: BETA-HCG, QUANT < 3.0 mIU/mL (3-10)
[2024-03-31 17:41] LABS: BILIRUBIN Negative (Negative); BLOOD 2+ (Negative); CLARITY Clear (Clear); COLOR Yellow (Yellow); GLUCOSE 2+ (Negative); KETONE Trace (Negative); LEUKO ESTERASE Negative (Negative); NITRITE Negative (Negative); PH 5.5 (4.5-8.0); SPECIFIC GRAVITY 1.025 (1.001-1.030); UROBILINOGEN 0.2 E.U./dl (0.0-1.0)
[2024-03-31 17:55] LABS: RBC 21-30 rbc/hpf (0-2)
[2024-03-31] MEDS ORDERED: METOCLOPRAMIDE5 MG PO (20:35)
== END 2024-03-31 20:40 | disposition home or self-care (01) ==
LOC: ED 15:10
PROVIDERS: Physician Assistant Medical
DX: R10.32 Left lower quadrant pain (principal); E11.9 Type 2 diabetes mellitus without complications; Z88.8 Allergy status to other drugs, medicaments and biological substances; Z88.2 Allergy status to sulfonamides; Z88.1 Allergy status to other antibiotic agents; Z90.49 Acquired absence of other specified parts of digestive tract; Z98.890 Other specified postprocedural states